=== PATIENT | female | born 1990 | race American Indian/Alaskan Native ===

== ENCOUNTER 2016-08-17 14:04 | Emergency (ER) | payer OTHER ==
[2016-08-17] MEDS ORDERED: Sodium Chloride 0.9% 1,000 ML IV ONE (14:38)
[2016-08-17] MEDS ORDERED: Sodium Chloride 0.9% 1,000 ML ONE (14:48)
[2016-08-17 14:55] LABS: RBC URINE 2063 /hpf (0-3); URINE BACTERIA OCC (<OCC); URINE BILIRUBIN NEGATIVE (NEGATIVE); URINE BLOOD 3+ (NEGATIVE); URINE COLOR Amber (YELLOW); URINE GLUCOSE (UA) NORMAL (Normal); URINE KETONE TRACE mg/dL (NEGATIVE); URINE LEUKOCYTE ESTERASE TRACE Leu/uL (Negative); URINE PROTEIN 2+ mg/dL (NEGATIVE); URINE UROBILINOGEN NORMAL mg/dL (0.2-1.0)
[2016-08-17 14:56] LABS: WBC URINE 10 /hpf (0-5)
--- NOTE | 2016-08-17 15:01 | C.PDOC ---
History Of Present Illness Patient is a 26 y/o female that presents to the ED for evaluation of hematuria for the few days. Patient reports being seen at Urgent Care 3 days ago, and had negative urine results, no STD. Patient also complains of intermittent right flank pain for the last week, and was seen by PMD today who suggested to get CT scan done. Patient reports 1 episode of vomiting 5 days ago and 1 episode today. Patient states her mother has history of kidney stone. Otherwise, denies any nausea, diarrhea, urinary frequency, dysuria, fever, chills, or any other associated symptoms at this time. Time Seen by Provider: 08/17/16 14:22 Chief Complaint (Nursing): Back Pain History Per: Patient History/Exam Limitations: no limitations Onset/Duration Of Symptoms: Days, Worse Since (today) Current Symptoms Are (Timing): Still Present Quality Of Discomfort: "Pain" Associated Symptoms: None. denies: Incontinence, New Weakness, New Numbness Recent travel outside of the [place]: No Additional History Per: Patient Past Medical History Reviewed: Historical Data, Nursing Documentation, Vital Signs Vital Signs: Last Vital Signs Temp 98.1 F 08/17/16 17:35 Pulse 101 H 08/17/16 17:35 Resp 18 08/17/16 17:35 BP 103/68 08/17/16 17:35 Pulse Ox 100 08/17/16 17:35 - Medical History PMH: No Chronic Diseases Surgical History: No Surg Hx Family History: States: No Known Family Hx - Social History Hx Alcohol Use: No Hx Substance Use: No Review Of Systems Except As Marked, All Systems Reviewed And Found Negative. Constitutional: Negative for: Fever, Chills Gastrointestinal: Positive for: Vomiting. Negative for: Nausea, Abdominal Pain , Diarrhea Genitourinary: Positive for: Hematuria. Negative for: Dysuria, Frequency, Incontinence, Vaginal Discharge, Vaginal Bleeding Musculoskeletal: Positive for: Back Pain (right flank) Neurological: Negative for: Weakness, Numbness Physical Exam - Physical Exam Appears: Non-toxic, No Acute Distress Skin: Normal Color, Warm, Dry Head: Atraumatic, Normacephalic Eye(s): bilateral: Normal Inspection, EOMI Neck: Normal ROM, Supple Chest: Symmetrical Cardiovascular: Rhythm Regular, No Murmur Respiratory: Normal Breath Sounds, No Rales, No Rhonchi, No Wheezing Gastrointestinal/Abdominal: Soft, No Tenderness, No Guarding, No Rebound Back: Normal Inspection, CVA Tenderness (right), No Vertebral Tenderness Extremity: Normal ROM Neurological/Psych: Oriented x3, Normal Speech ED Course And Treatment - Laboratory Results Result Diagrams: 08/17/16 15:02 08/17/16 15:02 Lab Interpretation: No Acute Changes O2 Sat by Pulse Oximetry: 99 (on RA) Pulse Ox Interpretation: Normal - CT Scan/US Abd & pelvis CT Other Rad Studies (CT/US): Read By Radiologist, Radiology Report Reviewed CT/US Interpretation: FINDINGS: LOWER THORAX: The lung bases are clear. LIVER : The liver is normal in size. No gross lesion or ductal dilatation. GALLBLADDER AND BILE DUCTS: No calcified gallstones. PANCREAS: Normal in size. No gross lesion or ductal dilatation. SPLEEN: The spleen is normal in size. ADRENALS: Both adrenal glands are normal in size without discrete nodule. KIDNEYS AND URETERS: Both kidneys are normal in size. There are 2 discrete 2-3 mm nonobstructing stones in the interpolar region of the right kidney. There is mild fullness in the right collecting system. There is a 2 mm calcification in the right hemipelvis. VASCULATURE: No aortic aneurysm. BOWEL : The small bowel loops are normal in caliber. There is moderate amount of stool scattered throughout the colon. APPENDIX: Normal appendix. PERITONEUM: No free fluid. No free air. LYMPH NODES: No enlarged lymph nodes. BLADDER: Partially decompressed. REPRODUCTIVE: The uterus is normal in size. BONES: No acute fracture. Within normal limits for the patient's age. OTHER FINDINGS : None. IMPRESSION: 1. Two discrete 2-3 mm nonobstructing stones in the interpolar region of the right kidney. 2. 2 mm calcification in the right hemipelvis is indeterminate and evaluation of this being a ureteral stone is limited due to lack of ureteral dilated gonsales, intraperitoneal fat and distended urinary bladder. Progress Note: Labs, abd & pelvis CT ordered and reviewed. Patient was given IV fluids, Toradol, and Zofran in the ER. Findings consistent with renal colic, no UTI or pyelonephritis. On re-exam, patient is resting comfortably in bed, and reports pain improved. Abdomen remains soft and non-tender. Discussed results with patient, and copy of report was provided. Patient feels comfortable going home and will be discharged. Patient given follow up instructions. Instructed to return to ER if symptoms worsen or new symptoms arise. Disposition Counseled Patient/Family Regarding: Studies Performed, Diagnosis, Need For Followup, Rx Given - Disposition Referrals: Aguilar Ngo MD [Staff Provider] - Disposition: HOME/ ROUTINE Disposition Time: 17:11 Condition: IMPROVED Additional Instructions: CT show kidney stone right side It is important that you drink fluids and take medications for the next few days Pain may continue for hours, take pain medicine as needed Follow up with urologist Prescriptions: Ibuprofen [Motrin] 600 mg PO Q8 #30 tab Tamsulosin [Flomax] 0.4 mg PO DAILY #10 cap Instructions: Kidney Stones (DC) - POA Present On Arrival: None - Clinical Impression Clinical Impression: Renal colic on right side - PA / [employer] / Resident Statement MD/DO has reviewed & agrees with the documentation as recorded. - Scribe Statement The provider has reviewed the documentation as recorded by the Tayibnatalia Ma All medical record entries made by the Tayibnatalia were at my direction and personally dictated by me. I have reviewed the chart and agree that the record accurately reflects my personal performance of the history, physical exam, medical decision making, and the department course for this patient. I have also personally directed, reviewed, and agree with the discharge instructions and disposition.
[2016-08-17 15:05] LABS: BASO # 0.1 K/uL (0.0-0.2); BASO % 1.1 % (0.0-2.0); EOS % 0.3 % (0.0-4.0); HEMATOCRIT 38.5 % (34.0-47.0); LYMPH # 0.7 K/uL (1.0-4.3); LYMPH % 8.5 % (20.0-40.0); MEAN CORPUSCULAR HEMOGLOBIN 27.1 pg (27.0-31.0); MEAN CORPUSCULAR HGB CONC 31.9 g/dL (33.0-37.0); MEAN PLATELET VOLUME 8.9 fL (7.2-11.7); MONO # 0.4 K/uL (0.0-0.8); MONO % 4.8 % (0.0-10.0); PLATELET COUNT 239 K/uL (130-400); RED CELL DISTRIBUTION WIDTH 13.2 % (11.5-14.5); WHITE BLOOD COUNT 8.6 K/uL (4.8-10.8)
[2016-08-17 15:22] LABS: CHLORIDE 101 mmol/L (98-107); NEUTROPHIL 86 % (50-75); POTASSIUM 3.9 mmol/L (3.6-5.2); SODIUM 139 mmol/L (132-148); TOTAL CELLS COUNTED 100
[2016-08-17 15:24] LABS: AST/SGOT 27 U/L (14-36); BILIRUBIN,TOTAL 0.8 mg/dL (0.2-1.3); CARBON DIOXIDE 23 mmol/L (22-30); GFR AFRICAN-AMERICAN > 60
[2016-08-17 15:25] LABS: ALB/GLOB RATIO 1.4 (1.0-2.1); ALKALINE PHOSPHATASE 73 U/L (38-126); ALT/SGPT 21 U/L (9-52); BLOOD UREA NITROGEN 10 mg/dL (7-17); CALCIUM 9.2 mg/dl (8.6-10.4); GLUCOSE,RANDOM 89 mg/dL (65-105); TOTAL PROTEIN 8.6 g/dL (6.3-8.3)
--- NOTE | 2016-08-17 17:03 | CT ---
PROCEDURE: CT Abdomen and Pelvis without intravenous contrast HISTORY: right flank pain COMPARISON: None. TECHNIQUE: CT scan of the abdomen and pelvis was performed without administration of oral or intravenous contrast. Coronal and sagittal reformatted images were obtained. Radiation dose: Total exam DLP = 181.9 mGy-cm. This CT exam was performed using one or more of the following dose reduction techniques: Automated exposure control, adjustment of the mA and/or kV according to patient size, and/or use of iterative reconstruction technique. FINDINGS: LOWER THORAX: The lung bases are clear. LIVER: The liver is normal in size. No gross lesion or ductal dilatation. GALLBLADDER AND BILE DUCTS: No calcified gallstones. PANCREAS: Normal in size. No gross lesion or ductal dilatation. SPLEEN: The spleen is normal in size. ADRENALS: Both adrenal glands are normal in size without discrete nodule. KIDNEYS AND URETERS: Both kidneys are normal in size. There are 2 discrete 2-3 mm nonobstructing stones in the interpolar region of the right kidney. There is mild fullness in the right collecting system. There is a 2 mm calcification in the right hemipelvis. VASCULATURE: No aortic aneurysm. BOWEL: The small bowel loops are normal in caliber. There is moderate amount of stool scattered throughout the colon. APPENDIX: Normal appendix. PERITONEUM: No free fluid. No free air. LYMPH NODES: No enlarged lymph nodes. BLADDER: Partially decompressed. REPRODUCTIVE: The uterus is normal in size. BONES: No acute fracture. Within normal limits for the patient's age. OTHER FINDINGS: None. IMPRESSION: 1. Two discrete 2-3 mm nonobstructing stones in the interpolar region of the right kidney. 2. 2 mm calcification in the right hemipelvis is indeterminate and evaluation of this being a ureteral stone is limited due to lack of ureteral dilated gonsales, intraperitoneal fat and distended urinary bladder.
[2016-08-17 17:36] VITALS: BP 103/68; PULSE 101; RESP 18; TEMP 98.1
[2016-08-17 17:43] VITALS: O2SAT 99
== END 2016-08-17 17:25 | disposition home or self-care (01) ==
LOC: C.ER 14:04
DX: N23 Unspecified renal colic (principal)
CPT/HCPCS: 74176; 80053; 81001; 84703; 85025; 96361; 96374; 96375; 99285; J1885; J2405; J7040